=== PATIENT | male | born 1945 | race Caucasian/White ===

== ENCOUNTER 2019-03-30 19:41 | Inpatient (IN) ==
[2019-03-30] MEDS ORDERED: NS 500 ML IV ONE (20:39)
[2019-03-30] MEDS ORDERED: NS 1,000 ML IV ONE ×2 (20:39→20:40)
[2019-03-30 20:45] LABS: INFLUENZA A NEGATIVE (NEGATIVE); INFLUENZA B NEGATIVE (NEGATIVE)
--- NOTE | 2019-03-30 21:04 | PROVIDER DOCUMENTATION ---
This chart was entered by Roxanna Mujica Scribe, acting as scribe for Star Kidd MD. HPI-General Adult - General Chief Complaint: Fever Stated Complaint: FEVER Time Seen by Provider: 03/30/19 20:32 Source: patient Allergies/Adverse Reactions: Patient Allergies Allergy/AdvReac Type Severity Reaction Status Date / Time No Known Allergies Allergy Verified 03/30/19 22:23 Home Medications: Home Medication List Medication Instructions Recorded Confirmed Last Taken Type Albuterol [Albuterol Neb] 1 dose PO 4XDAY 11/17/13 03/31/19 1 Day Ago History ~02/03/17 Ivig Preadministration Charge 1 dose IV PRN 11/17/13 03/31/19 01/21/17 History Acetaminophen E.r. [Tylenol 1 - 2 tab PO Q8HR 06/07/17 03/31/19 03/30/19 History Arthritis] Azelastine 137 Mcg Nasal [place] 1 spray INH DAILY 03/31/19 03/31/19 Unknown History [Astelin Nasal [place]] Budesonide [Pulmicort] 1 dose INH BID 03/31/19 03/31/19 Unknown History Citalopram Hydrobromide 1 tab PO DAILY 03/31/19 03/31/19 Unknown History [Citalopram HBr] Diltiazem HCl [Cartia Xt] 1 cap PO DAILY 03/31/19 03/31/19 Unknown History Flecainide Acetate 1 tab PO BID 03/31/19 03/31/19 Unknown History Fluticasone/Vilanterol [Breo 1 puff INH BID 03/31/19 03/31/19 Unknown History Ellipta 200-25 Mcg INH] Ropinirole [Requip] 1 tab PO DIRECTED 03/31/19 03/31/19 Unknown History Tamsulosin [Flomax] 1 cap PO DAILY 03/31/19 03/31/19 Unknown History - History of Present Illness -Gen Adult Nature of Presenting Problems: pt is a 74 yowm c/o chills, body aches, dry cough and fever of 101.2 that has been fluctuating all afternoon. pt had flu shot. gets ibig for 26 days for immune system. pt has hx of afib, been in rhythm since 2017. pcp [address]. monterroso. no sick contacts. Location of Pain/Injury: reports: generalized (body aches) Pain Radiation: reports: no radiation Quality of Pain: reports: aching Severity: reports: mild Onset/Duration: reports: this afternoon Timing: reports: still present Context/Activities at Onset: reports: none Modifying Factors: improves with: nothing Associated Symptoms: reports: cough, fever/chills, muscle aches (fever and chills). denies: chest pain, diarrhea, genitourinary problems, headaches, jennifer sea, rash, vomiting Recently seen or treated by another doctor?: Yes (sees dr markus alonso every 28 days ) Review of Systems - Adult - REVIEW OF SYSTEMS - ADULT Constitutional: reports: see HPI, chills, fever. denies: fatique, night sweats Eyes: reports: no symptoms reported Ears, Nose, Mouth & Throat: reports: no symptoms reported. denies: ear pain, sinus problem, hoarseness, throat pain Cardiovascular: reports: no symptoms reported. denies: chest pain, orthopnea, PND Respiratory: reports: see HPI, cough. denies: dyspnea on exertion, hemoptysis, pleurisy Gastrointestinal: reports: no symptoms reported. denies: diarrhea, nausea, vomiting Genitourinary: reports: no symptoms reported. denies: dysuria, hematuria, hesitency Musculoskeletal: reports: see HPI, muscle aches (generalized) Integumentary: reports: no symptoms reported Neurological: reports: no symptoms reported Psychiatric: reports: no symptoms reported Endocrine: reports: no symptoms reported Hematologic/Lymphatic: reports: no symptoms reported Allergic/Immunologic: reports: no symptoms reported All Other Systems: Reviewed and Negative Past History - Adult - PAST MEDICAL HISTORY-ADULT Review of Records: reports: Nursing Assessment Review, Medications Reviewed, Social history reviewed & non-contributory. Major Childhood Illnesses: reports: history unknown Cardiovascular: reports: cardiac disease, A-Fib, HTN Respiratory: reports: COPD Gastrointestinal: reports: GERD Obstetrical/Gynecological: reports: denies history Genitourinary: reports: denies history Musculoskeletal: reports: denies history Neurological: reports: other (vertigo) Endocrine/Immune: reports: cancer (melanoma), other (immune deficiency) Other Conditions: reports: denies history - PRIOR SURGERIES/PROCEDURES Surgical/Procedure History: reports: orthopedic (extremity), other - IMMUNIZATION STATUS Childhood Immunizations: UTD Flu Vaccine: See Nurse Assessment - FAMILY HISTORY Family History: reviewed, not pertinent - SOCIAL HISTORY Smoking: non-smoker Substance Use: none/never Physical Exam-General - PHYSICAL EXAM-ADULT Initial Vital Signs Reviewed: Yes - CONSTITUTIONAL General Appearance: appears well, alert, no apparent distress, obese. negative: lethargic, obtunded, combative - EYES Eyes: PERRL/EOMI, other (cataracts removed) - HEAD, EARS, NOSE, MOUTH & THROAT HENMT: normocephalic/atraumatic, normal ENT inspection, TMs normal, pharynx normal. negative: moist mucous membranes (dry oral mucosa), angioedema, phar yngeal erythema, tonsillar exudate, TM abnormal, TM obscurred by cerumen - NECK Neck: non-tender, full range of motion, supple, normal inspection - RESPIRATORY Respiratory: chest non-tender, lungs clear, normal breath sounds - CARDIOVASCULAR Cardiovascular: normal peripheral pulses, regular rate, rhythm - GASTROINTESTINAL (ABDOMEN) Abdominal Exam: normal bowel sounds, non tender, soft - MUSCULOSKELETAL Back Exam: normal inspection Extremity: normal range of motion, non-tender, normal inspection - SKIN Integumentary: normal color, normal turgor, warm/dry - NEUROLOGIC Neurologic: grossly normal, no motor/sensory deficits - PSYCHIATRIC Psych/Mental Status: normal mood/affect, normal thought content, normal thought process, oriented x 3 Progress - PLAN OF CARE/RESULTS Progress/Plan/Lab Results: Vital Signs - 8 hr 03/30/19 20:00 Temperature 100.0 F H Pulse Rate 99 H Respiratory Rate 20 Blood Pressure 160/76 O2 Sat by Pulse Oximetry 93 L Orders Category Date Time Status CHEST-2 VIEWS [RAD] Stat Exams 03/30/19 20:[address] Stat Lab 03/30/19 20:03 Received Result Diagrams: 03/30/19 22:00 03/30/19 22:00 - XRAY 1 XRAY Study: Chest Impression: See EMR Report ( EXAM: CHEST-2 VIEWS HISTORY: fever TECHNIQUE: Three views views COMPARISON: 02/23/2018 FINDINGS: The lungs are well expanded. The heart is not enlarged. The vessels are not distended. There are mild increased markings in the lung bases. No pleural effusions. IMPRESSION: Tiny basilar infiltrates Electronically signed by Ag Ghotra 03/30/2019 10:01 PM 03/30/192200 Interpreting Physician: Ag Ghotra MD Dictated Date/Time: 03/30/192199) - CONSULTS/PCP/HOSPITALIST Notification #1 *Consult/PCP/Hospitalist*: Dr. Vizcarra Time Discussed: 22:54 Consult Disposition: Admit Departure - Departure Date of Disposition Decision: 03/31/19 Time of Disposition Decision: 01:36 DIAGNOSIS: Pneumonia of both lower lobes Disposition: ADMITTED INPATIENT 09 Certified Medical Emergency: Emergent Condition: Stable Referrals and Follow-Ups: Dayton Motnerroso MD [Primary Care Provider] - - Critical Care Note This patient required my direct & personal management of CC.: No Attestation - Physician/ BETTINA Attestation Patient care was provided by Advanced Practice Provider:: No The physician spent face to face time with patient:: Yes Advanced Practice Provider documentation review:: Supervising physician onsite and consulted in the evaluation and care of this patient. The physician did have a face to face encounter with the patient. This chart was documented by the indicated scribe, (Roxanna Mujica Scribe) and accurately reflects the services I performed and decisions made by me, Star Kidd MD, as attested by the provider's signature.
--- NOTE | 2019-03-30 22:04 | Diag Imaging Result Doc PS360 ---
EXAM: CHEST-2 VIEWS HISTORY: fever TECHNIQUE: Three views views COMPARISON: 02/23/2018 FINDINGS: The lungs are well expanded. The heart is not enlarged. The vessels are not distended. There are mild increased markings in the lung bases. No pleural effusions. IMPRESSION: Tiny basilar infiltrates Electronically signed by Ag Ghotra 03/30/2019 10:01 PM
[2019-03-30 22:24] LABS: BASO# 0.01 X1000 (0.0-0.2); BASO% 0.1 % (0.0-0.8); EOS# 0.07 X1000 (0.0-0.7); EOS% 0.6 % (0.0-10.0); HEMATOCRIT 41.7 % (42.0-52.0); HEMOGLOBIN 13.7 g/dL (14.0-18.0); IMM GRAN# 0.02 X1000 (0.0-0.04); IMM GRAN% 0.2 % (0.0-0.5); LYMPH# 1.26 X1000 (1.2-3.4); LYMPH% 10.9 % (20.5-51.1); MCH 30.7 PG (27-31); MCHC 32.9 g/dL (33-37); MCV 93.5 FL (81-99); MONO# 0.68 X1000 (0.11-0.59); MONO% 5.9 % (1.7-9.3); MPV 9.1 FL (7.4-10.4); NEUT# 9.53 X1000 (1.4-6.5); NEUT% 82.3 % (42.2-75.2); PLT 224 X1000 (130-400); RBC 4.46 XMIL (4.7-6.1); RDW 14.2 % (11.5-14.5); WBC 11.57 X1000 (4.8-10.8)
[2019-03-30] MEDS ORDERED: ROCEPHIN 1 GM in NS 50 ML IV ONE (22:25)
[2019-03-30 22:41] LABS: AGAP 15; ALBUMIN 4.3 g/dL (3.5-5.0); ALKALINE PHOSPHATASE 90 U/L (32-122); BUN 20 mg/dL (8-22); CALCIUM 9.3 mg/dL (8.8-10.2); CHLORIDE 101 mmol/L (98-107); COSMO 289; CREATININE 1.1 mg/dL (0.7-1.2); ESTIMATED GFR > 60; GLUCOSE 131 mg/dL (70-104); GOT 30 U/L (10-34); GPT 26 U/L (10-44); POTASSIUM 4.6 mmol/L (3.5-5.1); SODIUM 143 mmol/L (136-145); TCO2 27 mmol/L (25-35); TOTAL PROTEIN 7.6 g/dL (6.3-8.3)
[2019-03-31 00:57] LABS: URINE SOURCE CLEAN CATCH
[2019-03-31 00:59] LABS: BILIRUBIN URINE NEGATIVE (NEGATIVE); BLOOD URINE NEGATIVE (NEGATIVE); COLOR YELLOW; GLUCOSE URINE NEGATIVE (NEGATIVE); KETONE URINE NEGATIVE (NEGATIVE); LEUKOCYTES URINE NEGATIVE (NEGATIVE); NITRITE URINE NEGATIVE (NEGATIVE); PROTEIN URINE NEGATIVE (NEGATIVE); SP GRAVITY URINE 1.021; TURBIDITY URINE CLEAR (CLEAR); UROBILINOGEN URINE NORMAL (NORMAL)
[2019-03-31 01:01] LABS: UR EPITHELIAL CELLS <10 /HPF (<10); URINE BACTERIA NEGATIVE /HPF; URINE RBC <10 /HPF (<10); URINE WBC <10 /HPF (<10)
[2019-03-31] MEDS ORDERED: ZITHROMAX 500 MG/NS 500 MG/250 ML IVPB IV ONE (01:34)
[2019-03-31] MEDS ORDERED: TYLENOL PO PRN (01:37)
[2019-03-31 03:33] VITALS: BP 125/77
[2019-03-31] MEDS ORDERED: CARDIZEM CD PO ONE (03:36)
[2019-03-31] MEDS ORDERED: TAMBOCOR PO ONE (03:37)
--- NOTE | 2019-03-31 05:05 | EKG Report ---
Test Performed on : 03/31/2019 01:42:19 AM Test Reason : pain Blood Pressure : / mmHG Vent. Rate : 097 BPM Atrial Rate : 097 BPM P-R Int : 214 ms QRS Dur : 118 ms QT Int : 354 ms P-R-T Axes : 057 -86 063 degrees QTc Int : 449 ms Sinus rhythm. with 1st degree AV block. Left axis deviation Low voltage QRS Right bundle branch block Cannot rule out Anterior infarct , age undetermined Abnormal ECG When compared with ECG of 13-JUL-2015 18:04, premature atrial complexes. are no longer present PA interval has increased Right bundle branch block is now present Minimal criteria for Anterior infarct are now present Unconfirmed Result
--- NOTE | 2019-04-01 00:07 | HISTORY AND PHYSICAL ---
ADDENDUM: Patient was admitted through the ER with fever as noted in the ER documentation. The patient, however, left AMA prior to our service being able to evaluate. cc: Antonio Vizcarra MD
--- NOTE | 2019-04-01 04:00 | DISCHARGE SUMMARY ---
ADMISSION DATE: 03/30/2019 DISCHARGE DATE: ADDENDUM: Patient was admitted through the ER with fever. Subsequently diagnosed with pneumonia. Unfortunately, he left AMA prior to being seen. Therefore, no discharge planning was able to be performed. cc: Antonio Vizcarra MD
== END 2019-03-31 05:52 | disposition left against medical advice (07) | DRG 871 ==
LOC: P.ED 19:41 → P.EDIPHOLD 03-31 02:27
PROVIDERS: ATTEND Family Medicine